=== PATIENT | male | born 1975 | race Hispanic/Latino ===

== ENCOUNTER 2020-11-17 11:59 | Inpatient (IN) | payer OTHER ==
[~2020-11-17] VITALS: Ht 177.8 cm; Wt 93.8 kg
[2020-11-17] MEDS ORDERED: SODIUM CHLORIDE 0.9% 1000ML 1,000 ML IV STA (12:26)
[2020-11-17] MEDS ORDERED: ASPIRIN 81 MG CHEW TAB PO ONE ×2 (12:30→14:45)
[2020-11-17 13:15] LABS: BASOPHILS # (AUTO) 0.1 (0.0-0.1); BASOPHILS % 0.6 % (0.0-1.0); EOSINOPHILS # (AUTO) 0.1 (0.0-0.4); EOSINOPHILS % 0.8 % (0.0-6.0); HEMATOCRIT 41.6 % (38.2-49.6); LYMPHOCYTES # (AUTO) 1.6 (1.0-3.2); LYMPHOCYTES % 18.2 % (18.0-39.1); MEAN CORPUSCULAR HGB CONC 31.3 g/dL (31-35); MEAN CORPUSCULAR VOLUME 86.3 fL (81-99); MONOCYTES # (AUTO) 0.5 (0.2-0.8); MONOCYTES % 5.2 % (4.4-11.3); NEUTROPHILS # (AUTO) 6.6 (2.1-6.9); NEUTROPHILS % 74.9 % (38.7-80.0); PLATELET COUNT 247 x10e3/uL (140-360); RED BLOOD COUNT 4.82 x10e6/uL (4.3-5.7); RED CELL DISTRIBUTION WIDTH 16.4 % (11.7-14.4)
[2020-11-17 13:27] LABS: INR 1.25
[2020-11-17 13:28] LABS: PARTIAL THROMBOPLASTIN TIME 31.9 seconds (23.8-35.5)
[2020-11-17 13:35] LABS: ALBUMIN 3.8 g/dL (3.5-5.0); ALBUMIN/GLOBULIN RATIO 1.2 (0.8-2.0); ANION GAP 15.7 mmol/L (8-16); CREATININE, SERUM 1.25 mg/dL (0.72-1.25); MAGNESIUM 1.9 MG/DL (1.3-2.1); POTASSIUM 3.7 mmol/L (3.5-5.1)
[2020-11-17 13:55] LABS: CREATINE KINASE MB 2.5 ng/mL (0-5.0); THYROID STIMULATING HORMONE 2.07 uIU/mL (0.350-4.940)
[2020-11-17] MEDS ORDERED: ONDANSETRON HCL INJ 2MG/ML 2ML 2 MG/ML VIAL IV PRN (14:45)
[2020-11-17] MEDS ORDERED: SODIUM CHLORIDE FLUSH 10 ML SYR INJ PRN (14:45)
[2020-11-17] MEDS ORDERED: MORPHINE SULFATE INJ 2 MG/ML SYR IV PRN (14:45)
[2020-11-17] MEDS ORDERED: SODIUM CHLORIDE 0.9% 50ML 50 ML ONE (14:56)
[2020-11-17] MEDS ORDERED: IOPAMIDOL 370 MG/ML 200 ML INFUS..BTL INJ ONE (14:57)
[2020-11-17] MEDS ORDERED: FUROSEMIDE INJ 10 MG/ML 4 ML VIAL ONE (15:27)
[2020-11-17] MEDS: FAMOTIDINE 20 MG TAB PO SCH (15:30)
[2020-11-17] MEDS ORDERED: FUROSEMIDE INJ 10 MG/ML 4 ML VIAL IV NR (15:45)
[2020-11-17 16:22] VITALS: BP 148/117
[2020-11-17] MEDS ORDERED: SACUBITRIL/VALSARTAN 1 EACH TABLET PO ONE (16:30)
[2020-11-17] MEDS ORDERED: ENOXAPARIN SOD INJ 40 MG/0.4 ML SYR SC SCH (17:00)
[2020-11-17 17:05] LABS: CREATINE KINASE MB 2.4 ng/mL (0-5.0)
[2020-11-17] MEDS: SPIRONOLACTONE 25 MG TAB PO SCH (17:50)
[2020-11-17] MEDS: CARVEDILOL 3.125 MG TAB PO SCH (17:50)
[2020-11-17] MEDS ORDERED: ALBUTEROL0.63 MG/3 NEB (17:55)
[2020-11-17] MEDS ORDERED: ENOXAPARIN SOD INJ 60 MG/0.6 ML SYR SC ONE (18:00)
[2020-11-17 18:15] VITALS: BP 148/117
[2020-11-17 19:00] VITALS: BP 116/87
[2020-11-17 21:00] VITALS: BP 116/87
[2020-11-17] MEDS: FUROSEMIDE INJ 10 MG/ML 4 ML VIAL IV SCH (21:55)
[2020-11-18] VITALS (8 sets, daily range): BP systolic 95–110; BP diastolic 66–85
[2020-11-18] MEDS: FAMOTIDINE 20 MG TAB PO SCH ×3 (02:45→21:10)
[2020-11-18 06:34] LABS: BASOPHILS % 0.5 % (0.0-1.0); EOSINOPHILS # (AUTO) 0.2 (0.0-0.4); EOSINOPHILS % 2.4 % (0.0-6.0); HEMATOCRIT 40.2 % (38.2-49.6); LYMPHOCYTES # (AUTO) 1.6 (1.0-3.2); LYMPHOCYTES % 18.7 % (18.0-39.1); MEAN CORPUSCULAR HGB CONC 32.3 g/dL (31-35); MEAN CORPUSCULAR VOLUME 83.6 fL (81-99); MONOCYTES # (AUTO) 0.7 (0.2-0.8); MONOCYTES % 8.3 % (4.4-11.3); NEUTROPHILS % 69.8 % (38.7-80.0); PLATELET COUNT 232 x10e3/uL (140-360); RED BLOOD COUNT 4.81 x10e6/uL (4.3-5.7); RED CELL DISTRIBUTION WIDTH 16.2 % (11.7-14.4)
[2020-11-18 07:06] LABS: ANION GAP 14.3 mmol/L (8-16); CALCIUM 8.7 mg/dL (8.4-10.2); CHOL/HDL RATIO 6.2 (3.9-4.7); CREATININE, SERUM 1.11 mg/dL (0.72-1.25); POTASSIUM 3.3 mmol/L (3.5-5.1)
[2020-11-18] MEDS: SPIRONOLACTONE 25 MG TAB PO SCH ×2 (08:03→17:01)
[2020-11-18] MEDS: ENOXAPARIN SOD INJ 60 MG/0.6 ML SYR SC SCH ×2 (08:03→21:13)
[2020-11-18] MEDS: CARVEDILOL 3.125 MG TAB PO SCH ×2 (08:03→17:01)
[2020-11-18] MEDS: SACUBITRIL/VALSARTAN 1 EACH TABLET PO SCH (08:03)
[2020-11-18] MEDS: ASPIRIN 81 MG ENTERIC COATED PO SCH (08:03)
[2020-11-18] MEDS: FUROSEMIDE INJ 10 MG/ML 4 ML VIAL IV SCH ×2 (08:04→21:13)
[2020-11-18] MEDS ORDERED: POTASSIUM CHLORIDE 10MEQ EA PO ONE (16:45)
[2020-11-19] VITALS (9 sets, daily range): BP systolic 84–103; BP diastolic 58–79
[2020-11-19 08:44] LABS: ANION GAP 15.6 mmol/L (8-16); CALCIUM 8.8 mg/dL (8.4-10.2); CREATININE, SERUM 1.11 mg/dL (0.72-1.25); POTASSIUM 3.6 mmol/L (3.5-5.1)
[2020-11-19] MEDS: SACUBITRIL/VALSARTAN 1 EACH TABLET PO SCH (10:11)
[2020-11-19] MEDS: SPIRONOLACTONE 25 MG TAB PO SCH ×2 (10:11→16:34)
[2020-11-19] MEDS: CARVEDILOL 3.125 MG TAB PO SCH ×2 (10:11→16:35)
[2020-11-19] MEDS: ENOXAPARIN SOD INJ 60 MG/0.6 ML SYR SC SCH ×3 (10:11→22:05)
[2020-11-19] MEDS: FUROSEMIDE INJ 10 MG/ML 4 ML VIAL IV SCH ×3 (10:11→22:05)
[2020-11-19] MEDS: ASPIRIN 81 MG ENTERIC COATED PO SCH (10:11)
[2020-11-19] MEDS: FAMOTIDINE 20 MG TAB PO SCH ×3 (10:11→22:05)
[2020-11-20] VITALS (17 sets, daily range): BP systolic 88–124; BP diastolic 66–94
[2020-11-20 06:56] LABS: ANION GAP 13.5 mmol/L (8-16); CALCIUM 9.2 mg/dL (8.4-10.2); CREATININE, SERUM 1.14 mg/dL (0.72-1.25); POTASSIUM 3.5 mmol/L (3.5-5.1)
[2020-11-20] MEDS: SPIRONOLACTONE 25 MG TAB PO SCH (09:00)
[2020-11-20] MEDS: SACUBITRIL/VALSARTAN 1 EACH TABLET PO SCH (09:00)
[2020-11-20] MEDS: ASPIRIN 81 MG ENTERIC COATED PO SCH (09:00)
[2020-11-20] MEDS: FUROSEMIDE INJ 10 MG/ML 4 ML VIAL IV SCH ×2 (09:00→21:00)
[2020-11-20] MEDS: ENOXAPARIN SOD INJ 60 MG/0.6 ML SYR SC SCH ×2 (09:00→21:28)
[2020-11-20] MEDS: FAMOTIDINE 20 MG TAB PO SCH ×2 (09:00→21:28)
[2020-11-20] MEDS: CARVEDILOL 3.125 MG TAB PO SCH ×2 (09:00→17:32)
[2020-11-20] MEDS ORDERED: FENTANYL CITRATE/PF 100MCG/2 ML INJ ONE (11:30)
[2020-11-20] MEDS ORDERED: VERAPAMIL HCL 2.5 MG/ML 2 ML VIAL ONE (11:30)
[2020-11-20] MEDS ORDERED: MIDAZOLAM HCL 2 MG/2 ML VIAL ONE ×2 (11:30→12:10)
[2020-11-20] MEDS ORDERED: SODIUM CHLORIDE 0.9% 1000ML 1,000 ML ONE (11:31)
[2020-11-20] MEDS ORDERED: IOPAMIDOL 370 MG/ML 200 ML INFUS..BTL INJ ONE (11:31)
[2020-11-20] MEDS ORDERED: LIDOCAINE HCL 2% LOCAL 20 ML VIAL ONE (11:31)
[2020-11-21] VITALS: BP 101/77
[2020-11-21 06:40] LABS: ANION GAP 13.8 mmol/L (8-16); CALCIUM 9.2 mg/dL (8.4-10.2); CREATININE, SERUM 0.97 mg/dL (0.72-1.25); POTASSIUM 3.8 mmol/L (3.5-5.1)
[2020-11-21 08:34] VITALS: BP 106/80
[2020-11-21] MEDS: SPIRONOLACTONE 25 MG TAB PO SCH (08:39)
[2020-11-21] MEDS: CARVEDILOL 3.125 MG TAB PO SCH ×2 (08:39→16:09)
[2020-11-21] MEDS: SACUBITRIL/VALSARTAN 1 EACH TABLET PO SCH (08:39)
[2020-11-21] MEDS: ASPIRIN 81 MG ENTERIC COATED PO SCH (08:39)
[2020-11-21] MEDS: FUROSEMIDE 40 MG TAB PO SCH (08:40)
[2020-11-21 08:41] VITALS: BP 106/80
[2020-11-21 12:20] VITALS: BP 93/78
[2020-11-21 16:34] VITALS: BP 94/61
[2020-11-21 20:04] VITALS: BP 101/73
[2020-11-21] MEDS ORDERED: ATORVASTATIN 10 MG TAB PO SCH (21:00)
[2020-11-22] VITALS: BP 109/87
[2020-11-22 04:00] VITALS: BP 101/79
[2020-11-22] MEDS: SPIRONOLACTONE 25 MG TAB PO SCH (08:09)
[2020-11-22] MEDS: ASPIRIN 81 MG ENTERIC COATED PO SCH (08:10)
[2020-11-22] MEDS: CARVEDILOL 3.125 MG TAB PO SCH (08:11)
[2020-11-22 08:13] VITALS: BP 103/79
[2020-11-22] MEDS: FUROSEMIDE 40 MG TAB PO SCH (08:15)
[2020-11-22 08:17] VITALS: BP 103/79
[2020-11-22] MEDS: SACUBITRIL/VALSARTAN 1 EACH TABLET PO SCH (09:00)
[2020-11-22] MEDS ORDERED: LASIX40 MG PO ×2 (09:43→09:46)
[2020-11-22] MEDS ORDERED: COREG3.125 MG PO (09:48)
[2020-11-22] MEDS ORDERED: LIPITOR10 MG PO (09:49)
[2020-11-22] MEDS ORDERED: ENTRESTO 49 MG1 EACH PO (09:49)
[2020-11-22] MEDS ORDERED: ECOTRIN81 MG PO (09:55)
[2020-11-22] MEDS ORDERED: ALDACTONE25 MG PO (09:55)
== END 2020-11-22 11:32 | disposition home or self-care (01) | DRG 282 ==
LOC: ER 12:10 → ERHOLD 14:52 → MED/SURG 16:47
PROVIDERS: ADMIT Internal Medicine; ATTEND Internal Medicine
PROC: 4A023N7 Measurement of Cardiac Sampling and Pressure, Left Heart, Percutaneous Approach (ICD-10-PCS; principal; 2020-11-20)
PROC: B3101ZZ Fluoroscopy of Thoracic Aorta using Low Osmolar Contrast (ICD-10-PCS; 2020-11-20)
PROC: B2151ZZ Fluoroscopy of Left Heart using Low Osmolar Contrast (ICD-10-PCS; 2020-11-20)
PROC: B240ZZ3 Ultrasonography of Single Coronary Artery, Intravascular (ICD-10-PCS; 2020-11-20)
DX: I50.21 Acute systolic (congestive) heart failure (principal); I21.A1 Myocardial infarction type 2; Z86.16 Personal history of COVID-19; I44.7 Left bundle-branch block, unspecified; E87.6 Hypokalemia; Z20.822 Contact with and (suspected) exposure to COVID-19
CPT/HCPCS: 36415; 71045; 71260; 76604; 80048; 80053; 80061; 82550; 82553; 82607; 82746; 83735; 83880; 84443; 84484; 85025; 85379; 85610; 85730; 92978; 93005; 93306; 93458; 99152; 99153; 99284; C1753; C1887; J1650; J1940; J2001; J2250; J2270; J2405; J3010; J7030; Q9967; U0002